=== PATIENT | male | born 1955 | race African-American/Black ===

== ENCOUNTER 2017-11-28 13:34 | Emergency (ER) | payer SELFPAY ==
[~2017-11-28] VITALS: Ht 190.5 cm; Wt 108.9 kg
[~2017-11-28 13:34] MED LIST: Albuterol ud Inhalation HHN ONE; Ipratropium 0.02% Inh Soln 2.5ml UD HHN ONE
--- NOTE | 2017-11-28 13:35 | Emergency Room Report ---
History of Present Illness General Source: Patient, EMS Present Illness HPI The patient presents with 3 days of congestion and nonproductive cough. He started radiation therapy for enlarged lymph nodes compressing his airway on November 17. He denies any fevers. Denies chest pain. Is a distant smoking history. He has a history of prostate cancer. Paramedics had clear lung sounds. The patient states he's heard himself wheezing recently. It's worse when he is supine. It also is worse when he is exerting himself. He's never had this type of dyspnea before. There is some hoarseness which is unchanged. Patient had oxygen saturation in the low 90s in the field. When remeasured here in the emergency department his oxygen saturation was 88%. No NVD, dysuria, change in bowels, headache, rashes, joint pain. Somewhat depressed over diagnoses. No SI. Allergies: Coded Allergies: No Known Allergies (Unverified , 11/28/17) Patient History Past Medical History: see triage record Social History: Reports: smoking - distant Social History Narrative at home Reviewed Nursing Documentation: PMH: Agreed, PSxH: Agreed Review of Systems All Other Systems: negative except mentioned in HPI Physical Exam Vital Signs Date Time Temp Pulse Resp B/P (MAP) Pulse Ox O2 Delivery O2 Flow Rate FiO2 11/28/17 13:29 99.3 110 22 111/70 88 Room Air 11/28/17 13:56 2.0 28 Sp02 EP Interpretation: reviewed, abnormal - low as interpreted by me General Appearance: well appearing, no apparent distress, GCS 15 Head: normocephalic Eyes: bilateral eye normal inspection, bilateral eye PERRL ENT: moist mucus membranes Neck: supple Respiratory: rhonchi, speaking full sentences, other - slight inc exp phase Cardiovascular #1: regular rate, rhythm, no edema, JVD - with exhalation Cardiovascular #2: 2+ radial (R) Gastrointestinal: normal inspection, normal bowel sounds, non tender, no mass, non-distended Musculoskeletal: back normal, gait/station normal, normal range of motion, no calf tenderness Neurologic: alert, oriented x3, grossly normal Psychiatric: mood/affect normal Skin: normal inspection, warm/dry Medical Decision Making Diagnostic Impression: Primary Impression: Obstructive pneumonia Additional Impressions: Metastatic disease Bronchospasm Prostate cancer ER Course Patient presents with dysuria and a feeling of congestion with history of radiation therapy to his chest which was recently begun for lymph nodes pressing his windpipe. Differential is broad including bronchitis, pneumonia, bronchospasm, upper airway obstruction, pericardial effusion amongst others. Evaluation will be with EKG, chest x-ray, CT the chest with contrast and labs. As he is herself wheezing we will treat him with albuterol and Atrovent. We'll also be giving him some mild IV hydration. EKG without injury. CXR with R mediastinal mass and infiltrate. WBC normal. Labs unremarkable. CT chest with infiltrative process and mass. Patient improved with breathing treatments with improved oxygenation. Due to CT , patient needs continued IV antibiotics and observation. Patient admitted here. Patient signing out AMA states he feels better and wants to follow up with his doctors. Discussed risk of and need for continued IV antibiotics and observation. Patient ambulated and O2 sat checked prior to his signing out. Laboratory Tests Test 11/28/17 15:35 11/28/17 16:24 White Blood Count 5.8 K/UL (4.8-10.8) Red Blood Count 4.06 M/UL (4.70-6.10) L Hemoglobin 9.6 G/DL (14.2-18.0) L Hematocrit 32.5 % (42.0-52.0) L Mean Corpuscular Volume 80 FL (80-99) Mean Corpuscular Hemoglobin 23.7 PG (27.0-31.0) L Mean Corpuscular Hemoglobin Concent 29.7 G/DL (32.0-36.0) L Red Cell Distribution Width 16.8 % (11.6-14.8) H Platelet Count 256 K/UL (150-450) Mean Platelet Volume 6.1 FL (6.5-10.1) L Neutrophils (%) (Auto) % (45.0-75.0) Lymphocytes (%) (Auto) % (20.0-45.0) Monocytes (%) (Auto) % (1.0-10.0) Eosinophils (%) (Auto) % (0.0-3.0) Basophils (%) (Auto) % (0.0-2.0) Differential Total Cells Counted 100 Neutrophils % (Manual) 84 % (45-75) H Lymphocytes % (Manual) 10 % (20-45) L Monocytes % (Manual) 6 % (1-10) Eosinophils % (Manual) 0 % (0-3) Basophils % (Manual) 0 % (0-2) Band Neutrophils 0 % (0-8) Platelet Estimate Adequate Platelet Morphology Normal Hypochromasia 1+ Anisocytosis 1+ Prothrombin Time 10.3 SEC (9.30-11.50) Prothrombin Time INR 1.0 (0.9-1.1) PTT 32 SEC (23-33) Sodium Level 137 MMOL/L (136-145) Potassium Level 4.2 MMOL/L (3.5-5.1) Chloride Level 101 MMOL/L (98-107) Carbon Dioxide Level 25 MMOL/L (21-32) Anion Gap 12 mmol/L (5-15) Blood Urea Nitrogen 11 mg/dL (7-18) Creatinine 0.8 MG/DL (0.55-1.30) Estimate Glomerular Filtration Rate > 60 mL/min (>60) Glucose Level 117 MG/DL (74-106) H Lactic Acid Level 0.80 mmol/L (0.66-2.22) Calcium Level 9.3 MG/DL (8.5-10.1) Total Bilirubin 0.5 MG/DL (0.2-1.0) Aspartate Amino Transferase (AST) 13 U/L (15-37) L Alanine Aminotransferase (ALT) 14 U/L (12-78) Alkaline Phosphatase 62 U/L (46-116) Total Creatine Kinase 93 U/L (26-308) Troponin I 0.015 ng/mL (0.000-0.056) Pro-B-Type Natriuretic Peptide 94 pg/mL (0-125) Total Protein 7.8 G/DL (6.4-8.2) Albumin 3.0 G/DL (3.4-5.0) L Globulin 4.8 g/dL Albumin/Globulin Ratio 0.6 (1.0-2.7) L Urine Color Brown Urine Appearance Clear Urine pH 5 (4.5-8.0) Urine Specific [place]ott 1.025 (1.005-1.035) Urine Protein 2+ (NEGATIVE) H Urine Glucose (UA) Negative (NEGATIVE) Urine Ketones 4+ (NEGATIVE) H Urine Occult Blood Negative (NEGATIVE) Urine Nitrite Negative (NEGATIVE) Urine Bilirubin Negative (NEGATIVE) Urine Urobilinogen 1 MG/DL (0.0-1.0) H Urine Leukocyte Esterase 1+ (NEGATIVE) H Urine RBC 0-2 /HPF (0 - 0) H Urine WBC 2-4 /HPF (0 - 0) Urine Squamous Epithelial Cells Few /LPF (NONE/OCC) Urine Bacteria Few /HPF (NONE) Urine Mucus Moderate /LPF (NONE/OCC) H Microbiology Date/Time Source Procedure Growth Status 11/28/17 16:00 Nasal Nares Influenza Types A,B Antigen (MARILU) - Final Complete EKG Diagnostic Results Rate: tachycardiac ST Segments: no acute changes - ST inversions and RA strain Rhythm Strip Diag. Results EP Interpretation: yes Rhythm: no PVC's, other - ST with PACs Chest X-Ray Diagnostic Results Chest X-Ray Diagnostic Results : Chest X-Ray Ordered: Yes # of Views/Limited/Complete: 1 View Indication: Shortness of Breath EP Interpretation: Yes Interpretation: no effusion, no pneumothorax, other - R infiltrate with inc nodes CT/MRI/US Diagnostic Results CT/MRI/US Diagnostic Results : Imaging Test Ordered: chest Impression IMPRESSION: Evidence of metastatic malignant neoplasm with right hilar and contiguous as ago esophageal recess mass/lymphadenopathy, lung nodules in the right lung, other mediastinal lymphadenopathy, and evidence of metastatic bone disease. Superimposed pneumonia or atelectasis involving part of the right lower lobe may be present as there is encasement, narrowing and possible invasion of portions of the right pulmonary bronchi as discussed above. Last Vital Signs Date Time Temp Pulse Resp B/P (MAP) Pulse Ox O2 Delivery O2 Flow Rate FiO2 11/28/17 22:07 97.7 101 23 108/52 100 Room Air 11/28/17 19:35 21 11/28/17 14:21 2.0 Status: improved Disposition: AGAINST MEDICAL ADVICE Condition: Serious Scripts Albuterol Sulfate* (ALBUTEROL SULFATE MDI*) 8.5 Gm Hfa.aer.ad 2 PUFF INH Q6H, #1 EA 0 Refills Prov: Christ Girard M.D. 11/28/17 Levofloxacin* (LEVAQUIN*) 500 Mg Tablet 500 MG ORAL DAILY for 10 Days, #10 TAB Prov: Christ Girard M.D. 11/28/17 Christ Girard M.D. Nov 28, 2017 13:35
[2017-11-28] MEDS ORDERED: cefTRIAXone 1 GM in NS 55 ML IVPB ONE (14:15)
[2017-11-28 15:30] VITALS: BP 126/71
--- NOTE | 2017-11-28 15:31 | Diagnostic Imaging Report ---
Indication: Dyspnea Comparison: None A single view chest radiograph was obtained. Findings: There is ill-defined infiltrate versus mass/adenopathy in the right perihilar region. Heart is mildly enlarged. Bones are unremarkable. IMPRESSION: Mass versus infiltrate right perihilar region. Please correlate clinically. Consider CT for further evaluation
[2017-11-28 15:55] LABS: HEMATOCRIT 32.5 % (42.0-52.0); HEMOGLOBIN 9.6 G/DL (14.2-18.0); MEAN CORPUSCULAR VOLUME 80 FL (80-99); PLATELET COUNT 256 K/UL (150-450); RED BLOOD COUNT 4.06 M/UL (4.70-6.10); RED CELL DISTRIBUTION WIDTH 16.8 % (11.6-14.8); WHITE BLOOD COUNT 5.8 K/UL (4.8-10.8)
[2017-11-28 16:14] LABS: ANION GAP 12 mmol/L (5-15); BLOOD UREA NITROGEN 11 mg/dL (7-18); CALCIUM 9.3 MG/DL (8.5-10.1); CARBON DIOXIDE 25 MMOL/L (21-32); CHLORIDE 101 MMOL/L (98-107); CREATININE 0.8 MG/DL (0.55-1.30); POTASSIUM 4.2 MMOL/L (3.5-5.1); SODIUM 137 MMOL/L (136-145)
[2017-11-28 16:24] LABS: ALANINE AMINOTRANSFERASE 14 U/L (12-78); ALBUMIN/GLOBULIN RATIO 0.6 (1.0-2.7); ALKALINE PHOSPHATASE 62 U/L (46-116); ASPARTATE AMINO TRANSFERASE 13 U/L (15-37); BILIRUBIN,TOTAL 0.5 MG/DL (0.2-1.0); CREATINE KINASE 93 U/L (26-308)
[2017-11-28 16:46] LABS: APPEARANCE,URINE CLEAR; BILIRUBIN, URINE NEGATIVE (NEGATIVE); COLOR,URINE BROWN; GLUCOSE, URINE (UA) NEGATIVE (NEGATIVE); KETONES,URINE 4+ (NEGATIVE); LEUKOCYTE ESTERASE ,URINE 1+ (NEGATIVE); NITRITE,URINE NEGATIVE (NEGATIVE); PH,URINE 5 (4.5-8.0); PROTEIN,URINE 2+ (NEGATIVE); UROBILINOGEN,URINE 1 MG/DL (0.0-1.0)
[2017-11-28 17:30] VITALS: BP 119/78
[2017-11-28] MEDS ORDERED: Albuterol ud Inhalation HHN ONE (19:15)
[2017-11-28 19:30] VITALS: BP 111/80
[2017-11-28] MEDS ORDERED: ZOFRAN ODT4 MG ORAL (19:46)
[2017-11-28] MEDS ORDERED: LUPRON DEPOT3.75 M1 IM (19:46)
[2017-11-28] MEDS ORDERED: KADIAN20 M1 PO (19:46)
[2017-11-28] MEDS ORDERED: DILAUDID8 MG PO (19:46)
[2017-11-28] MEDS ORDERED: COLACE100 MG ORAL (19:46)
[2017-11-28] MEDS ORDERED: PREDNISONE10 MG ORAL (19:46)
[2017-11-28] MEDS ORDERED: ALBUTEROL SULF8.5 GM INH (21:59)
[2017-11-28] MEDS ORDERED: LEVAQUIN500 MG ORAL (21:59)
[2017-11-28 22:07] VITALS: BP 108/52
--- NOTE | 2017-11-29 10:03 | Diagnostic Imaging Report ---
Indication: Chest pain and cough Technique: Continuous helical transaxial imaging of the chest was obtained from the thoracic inlet to the upper abdomen after intravenous nonionic contrast administration. Coronal 2-D reformats were also obtained. Automatic Exposure Control was utilized. Total Dose length Product (DLP): [address] Dose Index Volume (CTDIvol): 0.15, 8.1, 89.22, 24.1 mGy Comparison: none Findings: There is evidence of bulky mediastinal and hilar lymphadenopathy with nodes in the prevascular, paratracheal and subcarinal regions and aortopulmonary window. Largest concentration of tumor is seen in the subcarinal region extending into the azygos esophageal recess and right hilum. There is encasement of a portion of the marley and right mainstem bronchus which is encased and moderately narrowed. There is encasement and narrowing of bronchus intermedius and right lower lobe bronchus as well as part of the right upper lobe bronchus. Patchy parenchymal densities are noted in the right lower lobe which may be postobstructive atelectasis and/or pneumonia. A small right pleural effusion is also present. In addition there are nodular densities suspicious for a small satellite deposits of tumor within portions of the right lung concentrated in the lower lobe. Trace pericardial fluid noted. Small hiatal hernia is present. Visualized part of the upper abdomen demonstrates a staple line in association with the transverse colon. Accessory spleen noted. The bones are diffusely and extensively heterogeneous with areas of mixed sclerotic and lytic lesions within the spine suspicious for metastatic neoplasm. Bone scan may be of benefit for further evaluation. IMPRESSION: Evidence of metastatic malignant neoplasm with right hilar and contiguous as ago esophageal recess mass/lymphadenopathy, lung nodules in the right lung, other mediastinal lymphadenopathy, and evidence of metastatic bone disease. Superimposed pneumonia or atelectasis involving part of the right lower lobe may be present as there is encasement, narrowing and possible invasion of portions of the right pulmonary bronchi as discussed above. [facility] has communicated the preliminary results to the Emergency Department. Their findings are largely concordant with this report. The CT scanner at [facility] is accredited by the [employer] and the scans are performed using dose optimization techniques as appropriate to a performed exam including Automatic Exposure control.
--- NOTE | 2017-11-29 15:49 | Cardiology Report ---
APPROVED REPORT EKG Measurement Heart [id number] Sinus tachycardia Possible Left atrial enlargement T wave abnormality, consider inferior ischemia Abnormal ECG
== END 2017-11-28 22:07 | disposition left against medical advice (07) ==
LOC: EDBD 13:34 → EMR 15:55
DX: C61 Malignant neoplasm of prostate (principal); C78.01 Secondary malignant neoplasm of right lung; J18.8 Other pneumonia, unspecified organism; C79.51 Secondary malignant neoplasm of bone; J98.01 Acute bronchospasm; Z87.891 Personal history of nicotine dependence
CPT/HCPCS: 36415; 71045; 71260; 80053; 81003; 82550; 83605; 83880; 84484; 85007; 85025; 85610; 85730; 86710; 87040; 93005; 94640; 94664; 96361; 96374; 96375; 99284; J0696; J1956; Q9967